=== PATIENT | female | born 1990 | race Caucasian/White ===

== ENCOUNTER 2020-05-29 19:53 | Observation (INO) ==
[2020-05-30] MEDS ORDERED: ACETAMINOPHEN 325 MG TAB PO PRN (00:55)
[2020-05-30] MEDS ORDERED: ACETAMINOPHEN 325 MG TAB ONE (00:58)
--- NOTE | 2020-05-30 06:16 | Obstetrical Progress Note ---
Date of Service May 30, 2020 Assessment & Plan (1) Irregular contractions: Patient checked multiple times over 10 hours of observation because her contractions got more frequent. However, there was no cervical change and between 2-6 she was able to sleep. therefore, will d/c home. Strict precautions given. she has appt in the office on . gbs negative. (2) with 37 weeks completed gestation: Admission and Anticipated Discharge Date Admission Date: May 29, 2020 Subjective Patient is a 30yowf with iup at 37 1/7 weeks with a hx of a rapid labor and delivery at 35 weeks in her last presents to labor and delivery complaining of contractions that are q 5 min. no lof/vb. +fm. Patient is very concerned about rapid delivery. Was in the office last by my check. Review of Systems Review of Systems: All systems reviewed & are unremarkable except as noted in HPI & below Physical Exam Constitutional: WD/WN, vitals as above Psychiatric: A+Ox3, euthymic affect Genitourinary: cx--/-2 toco--q3-5 min efm--category one strip, 130s with mod variability, accels to 150s, no decels. Results & Data ([facility]) Vital Signs (Past 12 Hours) Vital Signs Temp Pulse Resp BP 05/30/20 04:19 36.7 C 73 137/78 05/30/20 00:28 36.5 C 66 18 135/82 05/29/20 20:14 37.0 C 83 135/86 05/29/20 19:59 18 PG Care Time/CCT Total # of Minutes Spent Total Time Spent with Patient: Total time spent is greater than 50% in coordination of care (as documented) at patient's floor/unit and/or counseling patient: Coding Level of Care Code 20424 OBS Care - Level 1 Diagnoses Irregular contractions O62.2 with 37 weeks completed gestation Z3A.37
--- NOTE | 2020-05-31 11:55 | Discharge Summary (DS) ---
ADMISSION DIAGNOSES: 1. Intrauterine at 37 and 1/7 weeks. 2. Uterine contractions. 3. History of rapid labor. DISCHARGE DIAGNOSES: 1. Intrauterine at 37 and 1/7 weeks. 2. Uterine contractions. 3. History of rapid labor. PROCEDURES: monitoring and evaluation for labor. HISTORY OF PRESENT ILLNESS: Nidhi is a 30-year-old white female 2, para 0-1-0-1, with a history of a rapid 35-week delivery in her last where she just felt a couple of contractions and ended up having a baby who presents to labor and delivery for evaluation. She was 4 cm and 90% in the office on the previous with a check done by me. She notes increasing contractions, no leakage of fluid, vaginal bleeding and good movement. The has been complicated by history of labor for which she was on [place] and discontinued this at 36 weeks. For the rest of patient's detailed history and physical, please see her records. On exam, she was afebrile. Her vital signs are stable. She is gravid and nontender. Her cervix was 4, 90 and -2. Tocodynamometer throughout her stay showed her yumiko from every 3 to 8 minutes and external monitor showed her to have a category 1 fetus. ASSESSMENT AND PLAN: The patient is a 30-year-old 2, para 0-1-0-1, with a history of a rapid labor at 35 weeks who presents with advanced cervical dilation at 37 and 1/7 weeks. She was monitored for approximately 12 hours to see if her cervix would change because she would contract as frequently as every 3-4 minutes. Between 2:00 a.m. and 6:00 a.m., she was able to sleep a little bit. On recheck at 6:00 a.m., her cervix was unchanged and she was discharged home. Strict precautions were given for returning to the hospital, she has a visit on , the .
== END 2020-05-30 06:35 | disposition home or self-care (01) ==
LOC: OPB 19:53 → 4S1 19:53 → 4S2 19:55 → 4S1 19:58

== ENCOUNTER 2020-05-30 21:58 | Inpatient (IN) ==
[2020-05-30] MEDS ORDERED: OXYTOCIN 30 UNITS/500 ML BAG IV PRN (22:35)
[2020-05-30] MEDS ORDERED: LACTATED RINGER'S 1,000 ML IV PRN (22:35)
[2020-05-30 23:17] LABS: Hematocrit (blood only) 35.3 % (37-47); Hemoglobin 11.8 g/dL (12.0-16.0); Mean Corpuscular Hemoglobin 29.4 pg (25-34); Mean Corpuscular Hgb Conc 33.4 g/dL (32-36); Mean Platelet Volume 11.5 fL (7.4-10.4); Platelet Count 221 K/uL (130-400); RDW Coefficient of Variation 13.3 % (11.5-14.5); RDW Standard Deviation 42.9 fL (36.4-46.3); Red Blood Count 4.01 M/uL (4.2-5.4); White Blood Count 8.82 K/uL (4.8-10.8)
[2020-05-31] MEDS ORDERED: OXYTOCIN 30 UNITS/500 ML BAG IV PRN ×2 (02:33→05:18)
[2020-05-31] MEDS ORDERED: ePHEDrine sulfate 50 MG/ML AMP ONE (04:17)
[2020-05-31] MEDS ORDERED: BUPIVACAINE 0.25% 30 ML VIAL ONE (04:18)
[2020-05-31] MEDS ORDERED: fentaNYL citrate 100 MCG/2 ML VIAL ONE (04:18)
[2020-05-31] MEDS ORDERED: fentaNYL 2MCG/ML ROPIV 1.25MG/ML 100 ML BAG EPI ONE (04:19)
[2020-05-31] MEDS ORDERED: ONDANSETRON INJ 2 MG/ML 2 ML VIAL ONE (04:19)
--- NOTE | 2020-05-31 05:06 | Delivery Summary ---
Vaginal Delivery Summary Date of Service May 31, 2020 Vaginal Delivery Summary DIAGNOSES: 1. Fox intrauterine at 37w2d gestation. 2. Spontaneous rupture of membranes, augmentation of labor. 3. Group B Streptococcus Neg. PROCEDURE: Spontaneous vaginal delivery and repair of second degree laceration. SURGEON: Adriane Perez MD. ELECTRICAL INSTALLER: None. ESTIMATED BLOOD LOSS: 300 mL. COMPLICATIONS: None. PLACENTA: Spontaneous and intact with a 3-vessel cord. DISPOSITION: Stable to labor and delivery. DESCRIPTION: The patient pushed well and brought the head to in OA position. The 's head was allowed to deliver with contraction force and no further active pushing, with the perineum protected during this time. The shoulders delivered easily with a maternal pushing effort. There was no nuchal cord. The right shoulder was anterior. The shoulders and body delivered without any difficulty, and the was placed on the maternal abdomen. It was vigorous and moving all extremities, and making respiratory efforts. A true knot was found in the cord and untied. The cord was doubly clamped by the MD and then cut by the patient's partner. The placenta delivered spontaneously and was noted to be intact and with a 3VC. The cervix, vagina and perineum were examined and were found to have a second degree laceration. This was infiltrated with lidocaine and then repaired using vicryl in the usual manner, with a crown suture to rebuild the perineal body. The fundus was firm and lochia minimal immediately after delivery.
[2020-05-31] MEDS ORDERED: SUPERCREAM 0.870% 15 GM JAR EXT PRN (05:18)
[2020-05-31] MEDS ORDERED: BENZOCAINE 20% AER SPR 82.5 GM CAN EXT PRN (05:18)
[2020-05-31] MEDS ORDERED: HYDROCORTISONE ACETATE 25 MG SUPP PR PRN (05:18)
[2020-05-31] MEDS ORDERED: OXYCODONE/ACETAMINOPHEN 5mg/325mg TAB PO PRN (05:18)
[2020-05-31] MEDS ORDERED: ACETAMINOPHEN 325 MG TAB PO PRN (05:18)
[2020-05-31] MEDS ORDERED: DIPHTHERIA/TETANUS/PERTUSSIS 0.5 ML SYR/VIAL IM ONE (05:18)
[2020-05-31] MEDS ORDERED: IBUPROFEN 600 MG TAB PO ONE (05:21)
[2020-05-31] MEDS: IBUPROFEN 600 MG TAB PO PRN ×4 (05:22→22:38)
[2020-05-31] MEDS: PRENATAL VITAMIN 1 TAB PO SCH (08:50)
[2020-05-31] MEDS: DOCUSATE SODIUM 100 MG CAP PO SCH ×2 (08:50→20:26)
[2020-06-01] MEDS: IBUPROFEN 600 MG TAB PO PRN ×2 (03:35→08:32)
[2020-06-01 06:15] LABS: Hematocrit (blood only) 29.1 % (37-47); Hemoglobin 9.8 g/dL (12.0-16.0); Mean Corpuscular Hemoglobin 30.2 pg (25-34); Mean Corpuscular Hgb Conc 33.7 g/dL (32-36); Mean Corpuscular Volume 89.8 fL (80-100); Mean Platelet Volume 11.1 fL (7.4-10.4); Platelet Count 190 K/uL (130-400); RDW Coefficient of Variation 13.6 % (11.5-14.5); RDW Standard Deviation 44.7 fL (36.4-46.3); Red Blood Count 3.24 M/uL (4.2-5.4); White Blood Count 11.38 K/uL (4.8-10.8)
--- NOTE | 2020-06-01 06:48 | Obstetrical Progress Note ---
Date of Service June 01, 2020 Assessment & Plan (1) Encounter for supervision of normal in multigravida, antepartum: - doing well - desires d/c - instructions given - f/u in 6 weeks Subjective Ambulation: ambulating normally Feeding Type:: breast feeding Physical Exam Constitutional WD/WN, vitals as above Gastrointestinal (Abdomen) Fundus firm below umbilicus Musculoskeletal No deep calf tenderness Results & Data ([facility]) Vital Signs (Past 12 Hours) Vital Signs Temp Pulse Resp BP Pulse Ox 06/01/20 04:15 98.2 F 80 18 146/88 H 98 05/31/20 23:50 98.2 F 73 18 135/76 97 05/31/20 20:30 98.2 F 91 H 18 138/83
[2020-06-01] MEDS: PRENATAL VITAMIN 1 TAB PO SCH (08:32)
[2020-06-01] MEDS: DOCUSATE SODIUM 100 MG CAP PO SCH (08:32)
== END 2020-06-01 13:40 | disposition home or self-care (01) | DRG 807 ==
LOC: OPB 21:58 → 4S1 22:00 → 4S2 05-31 08:39